=== PATIENT | male | born 1995 | race Caucasian/White ===

== ENCOUNTER 2019-01-19 16:42 | Emergency (ER) | payer BC, OTHER ==
[~2019-01-19] VITALS: Ht 188 cm; Wt 98.3 kg
--- NOTE | 2019-01-19 16:54 | NUR ---
PT TO ROOM AT THIS TIME.
--- NOTE | 2019-01-19 17:03 | NUR ---
23 Y/O MALE PRESENTS WITH C/O DIZZY. PER PT "I HAVE BEEN DIZZY FOR THE LAST THREE DAYS. TODAY I THOUGHT I WAS GOING TO PASS OUT, BUT I DIDN'T. I GET NAUSEOUS AND SWEATS AND CLAMMY. THE WORST PART IS THE DIZZINESS. IT FEELS LIKE I CAN'T KEEP MY BALANCE. LIKE I'M LOSING MY BALANCE." NO ACUTE DISTRESS NOTED. 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
--- NOTE | 2019-01-19 17:59 | NUR ---
PT GIVEN EMESIS BAG. PT SITTING ON GURNEY.
[2019-01-19 18:06] LABS: BASOPHILS # (AUTO) 0.02 x10^3/uL (0-0.1); BASOPHILS % (AUTO) 0 % (0-1); EOSINOPHILS # (AUTO) 0.03 x10^3/uL (0-0.4); EOSINOPHILS % (AUTO) 0 % (1-7); LYMPHOCYTES # (AUTO) 1.93 x10^3/uL (1-3.4); LYMPHOCYTES % (AUTO) 18 % (22-44); MD NO; MEAN CORPUSCULAR HEMOGLOBIN 28.6 pg (27.5-34.5); MEAN CORPUSCULAR HGB CONC 33.8 g/dL (33.2-36.2); MEAN CORPUSCULAR VOLUME 84.8 fL (81-97); MEAN PLATELET VOLUME 9.8 fL (7.4-10.4); MONOCYTES # (AUTO) 0.26 x10^3/uL (0.2-0.8); MONOCYTES % (AUTO) 2 % (2-9); NEUTROPHILS # (AUTO) 8.62 x10^3/uL (1.8-6.8); NEUTROPHILS % (AUTO) 79 % (42-75); PLATELET COUNT 175 x10^3/uL (130-400); RED BLOOD COUNT 5.57 x10^6/uL (4.38-5.82); RED CELL DISTRIBUTION WIDTH 13.2 % (9.4-14.8)
[2019-01-19] MEDS ORDERED: ONDANSETRON ODT 4 MG ONE (18:11)
[2019-01-19 18:13] VITALS: BP 123/69
[2019-01-19 18:13] LABS: ALBUMIN 4.6 g/dL (3.4-5.0); ANION GAP 6 mmol/L (5-15); CALCIUM 9.6 mg/dL (8.5-10.1); CHLORIDE 102 mmol/L (98-107)
--- NOTE | 2019-01-19 18:14 | NUR ---
PT MEDICATED PER EMAR. NO ACUTE DISTRESS NOTED. NO EPISODE OF EMESIS. GIRLFRIEND BEDSIDE. NO NEEDS REQUESTED AT THIS TIME.
[2019-01-19 18:17] LABS: ALANINE AMINOTRANSFERASE 23 U/L (12-78); ALKALINE PHOSPHATASE 78 U/L (45-117); BILIRUBIN,TOTAL 0.7 mg/dL (0.2-1.0); CREATININE 1.16 mg/dL (0.7-1.3); TOTAL PROTEIN 8.1 g/dL (6.4-8.2)
[2019-01-19] MEDS ORDERED: ONDANSETRON ODT 4 MG PO ONE (18:30)
== END 2019-01-19 19:18 | disposition home or self-care (01) ==
LOC: ED 19:00
DX: R55 Syncope and collapse (principal); E11.9 Type 2 diabetes mellitus without complications
CPT/HCPCS: 36415; 80053; 85025; 93005; 99284; Q0162

== ENCOUNTER 2019-09-25 08:23 | Emergency (ER) | payer BC, OTHER ==
[~2019-09-25] VITALS: Ht 188 cm; Wt 95.9 kg
[2019-09-25 08:33] VITALS: BP 144/74
[2019-09-25] MEDS ORDERED: MICROFIBRILLAR COLLAGEN 1 GM TP ONE (09:17)
[2019-09-25] MEDS ORDERED: DIPH,PERTUSS(ACELL),TET VAC/PF 0.5 ML IM-VACC ONE ×2 (09:18→09:30)
[2019-09-25] MEDS ORDERED: MICROFIBRILLAR COLLAGEN 0.5GM/PACK TP ONE (09:30)
--- NOTE | 2019-09-25 09:38 | NUR ---
WOUND PACKED WITH AVATINE. BLEEDING CONTROLLED. WOUND DRESSED WITH ADAPTIC, COVERED IN KERLIX. PT TOLERATED WELL. GIVEN INSTRUCTIONS ON WOUND CARE AT HOME, VERBALIZES UNDERSTANDING.
== END 2019-09-25 10:17 | disposition home or self-care (01) ==
LOC: ED 09:41
DX: S61.002A Unspecified open wound of left thumb without damage to nail, initial encounter (principal); X58.XXXA Exposure to other specified factors, initial encounter; Y93.89 Activity, other specified; Y92.009 Unspecified place in unspecified non-institutional (private) residence as the place of occurrence of the external cause; Y99.8 Other external cause status
CPT/HCPCS: 29125; 90471; 90715